=== PATIENT | female | born 1990 | race Hispanic/Latino ===

== ENCOUNTER 2017-02-28 22:52 | Outpatient (CLI) | payer BC, MEDICAID ==
[2017-02-28 23:14] VITALS: BP 118/65
== END 2017-02-28 23:36 | disposition home or self-care (01) ==
LOC: TRG 22:52
PROVIDERS: ATTEND Obstetrics & Gynecology
DX: O99.333 Smoking (tobacco) complicating pregnancy, third trimester (principal); O47.1 False labor at or after 37 completed weeks of gestation; Z3A.39 39 weeks gestation of pregnancy

== ENCOUNTER 2017-03-05 20:03 | Inpatient (IN) | payer BC, MEDICAID ==
[2017-03-05] MEDS ORDERED: BRETHINE IVP PRN (21:23)
[2017-03-05] MEDS ORDERED: ZOFRAN IV PRN (21:23)
[2017-03-05] MEDS ORDERED: MINERAL OIL PO PRN (21:23)
[2017-03-05] MEDS ORDERED: XYLOCAINE 2% INFILTRATI ONE (21:23)
[2017-03-05] MEDS ORDERED: BRETHINE SUB-Q PRN (21:23)
[2017-03-05] MEDS ORDERED: SUBLIMAZE IV PRN (21:23)
[2017-03-05] MEDS ORDERED: ePHEDrine SULFATE IV PRN (21:23)
[2017-03-05] MEDS ORDERED: PITOCin/NS 20 UNIT/1000ML DRIP 20 UNITS/1,000 ML BAG IV SCH (22:00)
[2017-03-05] MEDS ORDERED: PITOCin/NS 30 UNIT/500ML 30 UNITS/500 ML BAG IV SCH (22:00)
[2017-03-05 22:36] LABS: Hemoglobin 12.5 gm/dl (10.1-14.3); Mean Corpuscular HGB Conc 32 % (30-34); Mean Corpuscular Volume 79 fl (79-97); Platelet Count 251 K/mm3 (140-440); Red Blood Count 4.94 M/mm3 (3.65-5.03); Red Cell Distribution Width 14.5 % (13.2-15.2)
[2017-03-05 22:39] LABS: Mean Corpuscular Hemoglobin 25 pg (28-32)
[2017-03-05] MEDS: LACTATED RINGERS 1,000 ML IV SCH (23:10)
[2017-03-05] MEDS ORDERED: AMBIEN PO PRN (23:25)
[2017-03-06] MEDS: STADOL IV PRN ×2 (05:15→07:20)
[2017-03-06] MEDS: LACTATED RINGERS 1,000 ML IV SCH ×2 (07:23→07:45)
[2017-03-06] MEDS ORDERED: ePHEDrine SULFATE ONE (07:41)
--- NOTE | 2017-03-06 08:30 | Anesthesia Consultation ---
Anesthesia Consult and Med Hx Date of service: 03/06/17 - Airway Anesthetic Teeth Evaluation: Good ROM Head & Neck: Adequate Mental/Hyoid Distance: Adequate Mallampati Class: Class II Intubation Access Assessment: Probably Good - Pre-Operative Health Status ASA Pre-Surgery Classification: ASA3 Proposed Anesthetic Plan: Epidural, Spinal - Pulmonary Hx Smoking: Yes (1 p/d x 11 years) Hx Asthma: No COPD: No Hx Pneumonia: No - Cardiovascular System Hx Hypertension: No - Central Nervous System Hx Seizures: No Hx Psychiatric Problems: Yes (anxiety/depression) - Endocrine Hx Renal Disease: No Hx End Stage Renal Disease: No Hx Hypothyroidism: No Hx Hyperthyroidism: No - Hematic Hx Anemia: No Hx Sickle Cell Disease: No - Other Systems Hx Alcohol Use: No
[2017-03-06] MEDS ORDERED: ePHEDrine SULFATE IV PRN (09:00)
[2017-03-06] MEDS ORDERED: fentaNYL-BUPIV 2 MCG/ML-0.125% 200 MCG/100 ML BAG EPIDURAL SCH (09:00)
[2017-03-06] MEDS ORDERED: NARCAN 2 MG/2 ML IV PRN (09:00)
--- NOTE | 2017-03-06 12:13 | History and Physical Report ---
History of Present Illness Date of examination: 03/05/17 Date of admission: 03/05/17 20:03 Chief complaint: I'm overdue History of present illness: Patient is a 26 year old who presents for post dates induction of labor and macrosomia. The EFW was stated as greater than 4000 grams on 02/21/17. Patient has had an uncomplicated course. All labs have been normal. Past History Past Medical History: no pertinent history Past Surgical History: cholecystectomy Family/Genetic History: cancer (mom of ovarian cancer in 2014) Social history: single - Obstetrical History Expected Date of Delivery: 03/03/17 Actual Gestation: 40 Week(s) 3 Day(s) : 3 Para: 2 Number of Living Children: 1 Medications and Allergies Allergies Allergy/AdvReac Type Severity Reaction Status Date / Time No Known Allergies Allergy Verified 03/19/13 14:17 Home Medications Medication Instructions Recorded Confirmed Last Taken Type Vit-Fe Fumar-FA [ 1 each PO QDAY #60 tablet 05/10/15 03/05/17 03/04/17 Rx Vitamin] ALPRAZolam [Xanax TAB] 1 mg PO TID PRN 03/05/17 03/05/17 2 Weeks Ago History Active Meds: Active Medications Butorphanol Tartrate (Stadol) 2 mg IV Q2H PRN PRN Reason: Pain , Severe (7-10) Last Admin: 03/06/17 07:20 Dose: 2 mg Fentanyl (Sublimaze) 100 mcg IV Q2H PRN PRN Reason: Labor Pain Last Admin: 03/06/17 02:56 Dose: 100 mcg Lactated Ringer's (Lactated Ringers) 1,000 mls @ 125 mls/hr IV DIRECT ANGEL Last Admin: 03/06/17 07:45 Dose: 125 mls/hr Oxytocin/Sodium Chloride (Pitocin/Ns 20 Unit/1000ml Drip) 20 units in 1,000 mls @ 125 mls/hr IV DIRECT ANGEL Oxytocin/Sodium Chloride (Pitocin/Ns 30 Unit/500ml) 30 units in 500 mls @ 2 mls /hr IV TITR ANGEL; 2 MILLIUNITS/MIN PRN Reason: Protocol Last Admin: 03/05/17 23:15 Dose: 2 milliunits/min, 2 mls/hr Fentanyl/Bupivacaine/Sodium Chlor (Fentanyl-Bupiv 2 Mcg/Ml-0.125%) 200 mcg in 100 mls @ 12 mls/hr EPIDURAL TITR ANGEL PRN Reason: Protocol Last Admin: 03/06/17 09:13 Dose: 12 mls/hr Mineral Oil (Mineral Oil) 30 ml PO QHS PRN PRN Reason: Constipation Ondansetron HCl (Zofran) 4 mg IV Q8H PRN PRN Reason: Nausea And Vomiting Last Admin: 03/06/17 08:49 Dose: 4 mg Zolpidem Tartrate (Ambien) 5 mg PO QHS PRN PRN Reason: Sleep Last Admin: 03/05/17 23:32 Dose: 5 mg Review of Systems All systems: negative Constitutional: weight gain Genitourinary: contractions - Vital Signs Vital signs: Vital Signs Pulse BP 105 H 108/71 03/05/17 21:22 03/05/17 21:22 Temp Pulse Resp BP Pulse Ox 98.1 F 90 20 107/59 100 03/06/17 05:27 03/06/17 11:31 03/06/17 05:27 03/06/17 11:22 03/06/17 11:31 - Physical Exam Breasts: Cardiovascular: Regular rate, Normal S1, Normal S2 Lungs: Positive: Clear to auscultation, Normal air movement Abdomen: Positive: normal appearance, soft, normal bowel sounds. Negative: distention, tenderness Vulva: both: normal Vagina: Positive: normal moisture. Negative: discharge Cervix: Negative: lesion, discharge Uterus: Positive: normal size, normal contour Adnexa: both: normal Anus/Rectum: Positive: normal perianal skin, heme negative. Negative: rectal mass, hemorrhoids Extremities: Deep Tendon Reflex Grade: Normal +2 - Obstetrical Cervical Dilatation: 3 Cervical Effacement Percentage: 70 station: -2 Uterine Contraction Pattern: Absent Uterine Contraction Intensity: Mild Results Result Diagrams: 03/05/17 21:58 Abnormal lab results 03/05/17 Range/Units 21:58 WBC 14.0 H (4.5-11.0) K/mm3 MCH 25 L (28-32) pg All other labs normal. Assessment and Plan IUP at 40.2 weeks here for induction of labor. Admit for low dose pitocin therapy overnight. AROM when needed. Anticipate .
--- NOTE | 2017-03-06 12:18 | Procedure Note ---
OB Delivery Note - Delivery Date of Delivery: 03/06/17 Surgeon: LEXI SAHNI Estimated blood loss: other (150) - Vaginal Delivery presentation: vertex Delivery position: OA Intrapartum events: none Delivery induction: oxytocin Delivery monitor: external FHT, external uterine Route of delivery: Delivery placenta: spontaneous Delivery cord: 3 umbilical vessels Episiotomy: none Delivery laceration: vaginal side wall Anesthesia: epidural Delivery comments: Viable female delivered over intact perineum with 3vc. Weight 7 pounds 5 ounces. Apgars 8,9. placed on maternal abdomen. Placenta expelled spontaneously. Cord clamped and cut. Patient tolerated procedure well. - Infant A at 1 minute: 8 at 5 minutes: 9 Gender: Female
[2017-03-06] MEDS ORDERED: LANSINOH TP PRN (15:43)
[2017-03-06] MEDS ORDERED: PHENERGAN PO PRN (15:43)
[2017-03-06] MEDS ORDERED: DULCOLAX PR PRN (15:43)
[2017-03-06] MEDS ORDERED: PHENERGAN PR PRN (15:43)
[2017-03-06] MEDS ORDERED: MILK OF MAGNESIA PO PRN (15:43)
[2017-03-06] MEDS ORDERED: BENADRYL PO PRN (15:43)
[2017-03-06] MEDS ORDERED: ZOFRAN IV PRN (15:43)
[2017-03-06] MEDS ORDERED: SODIUM CHLORIDE FLUSH SYRINGE 10 ML IV NR (15:43)
[2017-03-06] MEDS ORDERED: TUCKS PAD TP PRN (15:43)
[2017-03-06] MEDS ORDERED: TYLENOL PO PRN (15:43)
[2017-03-06] MEDS ORDERED: DERMOPLAST TP PRN (17:34)
[2017-03-06] MEDS: MOTRIN PO SCH ×2 (17:45→22:00)
[2017-03-06] MEDS: NORCO 5/325 PO PRN (20:01)
[2017-03-07 00:59] LABS: Hematocrit 38.1 % (30.3-42.9)
[2017-03-07] MEDS: MOTRIN PO SCH ×2 (02:20→09:01)
[2017-03-07] MEDS: NORCO 5/325 PO PRN ×3 (04:29→13:12)
--- NOTE | 2017-03-07 11:25 | Progress Note ---
Assessment and Plan PPD 1 s/p . Doing well. Patient complaining of pain and pressure in pelvis. Bleeding normal. Will recommend abdominal binder to help with support for pelvic discomfort. Plan for discharge on today Subjective - Subjective Date of service: 03/07/17 Interval history: Patient is a 26 year old who presents for post dates induction of labor and macrosomia. The EFW was stated as greater than 4000 grams on 02/21/17. Patient has had an uncomplicated course. All labs have been normal. Patient reports: appetite normal, voiding normally, pain well controlled, ambulating normally, other (patient complaining of left sided hip and leg pain and vaginal pressure) : doing well Objective - Vital Signs Latest vital signs: Vital Signs Temp Pulse Resp BP Pulse Ox 03/07/17 00:40 98.2 F 84 20 103/62 03/06/17 20:30 97.7 F 89 20 98/53 03/06/17 17:45 20 03/06/17 16:34 98.7 F 88 20 98/70 03/06/17 13:50 97.9 F 72 20 100/70 03/06/17 13:40 97.9 F 80 16 110/62 100 03/06/17 12:22 73 135/58 03/06/17 12:07 90 134/58 03/06/17 12:03 87 100 03/06/17 12:01 94 H 122/86 03/06/17 11:31 90 100 03/06/17 11:26 84 99 Intake and Output 03/06/17 03/07/17 03/07/17 22:59 06:59 14:59 Intake Total 610 240 Output Total 900 Balance -290 240 Intake: IV 250 PITOCin/NS 20 UNIT/1000ML 250 DRIP 20 units In 1,000 ml @ 125 mls/hr IV DIRECT ANGEL Rx#:[id number] Oral 360 240 Output: Urine 900 Void 900 Other: Total, Intake Amount 360 240 Total, Output Amount 900 # Voids Void 1 - Exam Breasts: Present: deferred Cardiovascular: Present: Regular rate, Normal S1, Normal S2 Lungs: Present: Clear to auscultation, Normal air movement Abdomen: Present: normal appearance, soft, normal bowel sounds, other (obese, minimal tone) Vulva: both: normal Uterus: Present: normal, firm, fundal height below umbilicus Extremities: Present: normal Deep Tendon Reflex Grade: Normal +2
--- NOTE | 2017-03-07 11:27 | Discharge Summary ---
Providers - Providers Date of Admission: 03/05/17 20:03 Date of discharge: 03/07/17 Attending physician: LEXI SAHNI Primary care physician: LEXI SAHNI Hospitalization Reason for admission: induction of labor Delivery: Episiotomy: none Laceration: vaginal side wall complications: none Discharge diagnosis: IUP at term delivered [place] baby: female Hospital course: Unremarkable Condition at discharge: Good Disposition: DC-01 TO HOME OR SELFCARE Plan - Discharge Medications Prescriptions: HYDROcodone/APAP 5-325 [[place] 5/325] 1 each PO Q6HR PRN #20 tablet PRN Reason: Pain Ibuprofen [Motrin] 800 mg PO Q8HR PRN #30 tablet PRN Reason: Pain - Provider Discharge Summary Activity: routine, no sex for 6 weeks, no heavy lifting 4 weeks, no strenuous exercise Diet: routine Instructions: routine Additional instructions: [] Smoking cessation referral if applicable(refer to patient education folder for contact #) [] Refer to [facility]'s [facility] Booklet Call your doctor immediately for: * Fever > 100.5 * Heavy vaginal bleeding ( >1 pad per hour) * Severe persistent headache * Shortness of breath * Reddened, hot, painful area to leg or breast * Drainage or odor from incision. * Keep incision clean and dry at all times and follow doctor's instructions regarding bathing/showering - Follow up plan Follow up: LEXI SAHNI MD [Primary Care Provider] - 6 Weeks
[2017-03-07 15:22] VITALS: BP 142/76
--- NOTE | 2017-03-13 09:19 | Ultrasound Report ---
OB LIMITED INDICATION: well being, presentation. COMPARISON: None similar during this gestation. TECHNIQUE: Transabdominal grayscale ultrasound with Doppler interrogation. Gestation: [place] Position: Cephalic Heart Rate: 115 BPM
== END 2017-03-07 15:30 | disposition home or self-care (01) | DRG 775 ==
LOC: LD 20:03 → OB 03-06 14:08
PROVIDERS: ADMIT Obstetrics & Gynecology; ATTEND Obstetrics & Gynecology
PROC: 10E0XZZ Delivery of Products of Conception, External Approach (ICD-10-PCS; principal; 2017-03-06)
PROC: 3E033VJ Introduction of Other Hormone into Peripheral Vein, Percutaneous Approach (ICD-10-PCS; 2017-03-06)
PROC: 00HU33Z Insertion of Infusion Device into Spinal Canal, Percutaneous Approach (ICD-10-PCS; 2017-03-06)
PROC: 3E0R3CZ (ICD-10-PCS; 2017-03-06)
DX: O48.0 Post-term pregnancy (principal); O71.4 Obstetric high vaginal laceration alone; O36.63X0 Maternal care for excessive fetal growth, third trimester, not applicable or unspecified; Z3A.40 40 weeks gestation of pregnancy; Z37.0 Single live birth
CPT/HCPCS: 36415; 76815; 85014; 85018; 85027; 86850; 86900; 86901; J0595; J2405; J2590; J3010; J7120

== ENCOUNTER 2020-09-22 00:05 | Outpatient (CLI) | payer MEDICAID ==
[2020-09-22 01:33] VITALS: BP 132/80
== END 2020-09-22 01:29 | disposition home or self-care (01) ==
LOC: TRG 00:05 → APU 00:06 → TRG 01:29
PROVIDERS: ATTEND Obstetrics & Gynecology
DX: O47.03 False labor before 37 completed weeks of gestation, third trimester (principal); Z3A.37 37 weeks gestation of pregnancy
CPT/HCPCS: 59025

== ENCOUNTER 2021-07-22 17:53 | Emergency (ER) | payer MEDICAID ==
[2021-07-22] MEDS ORDERED: PROMETHAZINE 25 MG TAB PO ONE (20:15)
[2021-07-22] MEDS ORDERED: ACETAMINOPHEN 500 MG TAB PO ONE (20:15)
[2021-07-22] MEDS ORDERED: FAMOTIDINE 20 MG TAB PO ONE (20:15)
[2021-07-22 20:28] LABS: Basophils % (Auto) 0.7 % (0.0-1.8); Eosinophils # (Auto) 0.1 K/mm3 (0.0-0.4); Eosinophils % (Auto) 1.8 % (0.0-4.3); Hematocrit 47.5 % (30.3-42.9); Hemoglobin 15.2 gm/dl (10.1-14.3); Lymphocytes # (Auto) 2.6 K/mm3 (1.2-5.4); Lymphocytes % (Auto) 43.9 % (13.4-35.0); Mean Corpuscular HGB Conc 32 % (30-34); Mean Corpuscular Volume 81 fl (79-97); Monocytes # (Auto) 0.4 K/mm3 (0.0-0.8); Monocytes % (Auto) 6.7 % (0.0-7.3); Platelet Count 200 K/mm3 (140-440); Red Blood Count 5.88 M/mm3 (3.65-5.03); Red Cell Distribution Width 15.9 % (13.2-15.2)
[2021-07-22 20:45] LABS: Alanine Aminotransferase 30 units/L (7-56); Albumin 4.3 g/dL (3.9-5); Blood Urea Nitrogen 9 mg/dL (7-17); Calcium 9.4 mg/dL (8.4-10.2); Hemolysis Index 23
[2021-07-22 21:02] LABS: BUN/Creatinine Ratio 18
--- NOTE | 2021-07-22 21:52 | Ultrasound Report ---
ULTRASOUND OBSTETRIC INDICATION / CLINICAL INFORMATION: vaginal bleeding. TECHNIQUE: Transabdominal. COMPARISON: None available. FINDINGS: GESTATIONAL SAC: Not visualized YOLK SAC: Not visualized EMBRYO/FETUS: Not visualized ADNEXA: No significant abnormality. FREE FLUID: None. UTERUS: Uterus normal in size and echotexture measuring 9.3 x 4.5 x 5.5 cm. Endometrial stripe measur es 5 mm IMPRESSION: 1. No IUP. Follow-up beta-hCG and ultrasound recommended in order to distinguish early nonvisualized IUP, nonvisualized ectopic or less likely miscarriage. Signer Name: Otis Marquez MD Signed: 07/22/2021 9:48 PM Workstation Name: [id number]
[2021-07-22 23:43] LABS: Bilirubin,Urine NEG (Negative); Blood,Urine LG (Negative); Color,Urine Red (Yellow); Mucus,Urine FEW /HPF; Urobilinogen,Urine < 2.0 mg/dL (<2.0)
[2021-07-22 23:51] LABS: RBC,Urine > 182.0 /HPF (0.0-6.0)
[2021-07-23 00:27] VITALS: BP 150/98
--- NOTE | 2021-07-23 00:27 | Emergency Department Report ---
ED Female HPI - General Chief complaint: Vaginal Bleeding Stated complaint: poss miscarriage Source: patient Mode of arrival: Ambulatory Limitations: No Limitations - History of Present Illness Initial comments: Patient is a A0 30-year-old female with no past medical history who presented to the ED with complaint of acute onset persistent severe pelvic pain with vaginal bleeding for the last 12 hours. Patient states that she tested positive for at home about a week ago and has been having persistent pelvic pain intermittently but that the bleeding started about 12 hours ago. Patient states that she has had heavy bleeding persistently for the last 12 hours and scared that she may be having a miscarriage. Patient denies fever, chills, dysuria, urinary frequency and urgency, chest pain or shortness of breath, lightheadedness, low back pain, cough, sore throat or change in vision. MD Complaint: vaginal bleeding, pelvic pain, other (Headache) -: Sudden, hour(s) (12) Location: suprapubic, other (vaginal) Radiation: suprapubic Severity: severe Severity scale (0 -10): 7 Quality: cramping, sharp Consistency: constant Improves with: none Worsens with: movement Are you Now?: Yes (4 weeks gestation) Associated Symptoms: denies other symptoms, vaginal bleeding, abdominal pain (suprapubic pain). denies: vaginal discharge, nausea/vomiting, fever/chills, headaches, loss of appetite, dysuria, hematuria, rash, shortness of breath, syncope, weakness - Related Data Sexually active: Yes : 5 Para: 4 A: 0 Home Medications Medication Instructions Recorded Confirmed Last Taken ALPRAZolam [Xanax TAB] 1 mg PO TID PRN 03/05/17 03/05/17 2 Weeks Ago ~02/19/17 Previous Rx's Medication Instructions Recorded Last Taken Type Vit-Fe Fumar-FA [ 1 each PO QDAY #60 tablet 05/10/15 03/04/17 Rx Vitamin] HYDROcodone/APAP 5-325 [[place] 1 each PO Q6HR PRN #20 tablet 03/06/17 Unknown Rx 5/325] Ibuprofen [Motrin] 800 mg PO Q8HR PRN #30 tablet 03/06/17 Unknown Rx HYDROcodone/APAP 5-325 [[place] 1 each PO Q6HR PRN #15 tablet 10/04/20 Unknown Rx 5/325] Ibuprofen [Motrin] 800 mg PO Q8HR PRN #40 tablet 10/04/20 Unknown Rx Acetaminophen [Tylenol] 500 mg PO Q6HR #30 tablet 07/23/21 Unknown Rx Promethazine [Phenergan] 25 mg PO Q8HR PRN #20 tab 07/23/21 Unknown Rx cephALEXin [Keflex] 500 mg PO Q8HR #30 cap 07/23/21 Unknown Rx Allergies Allergy/AdvReac Type Severity Reaction Status Date / Time No Known Allergies Allergy Verified 03/19/13 14:17 ED Review of Systems ROS: Stated complaint: poss miscarriage Other details as noted in HPI Constitutional: denies: chills, fever Eyes: denies: eye pain, eye discharge, vision change ENT: denies: ear pain, throat pain Respiratory: denies: cough, shortness of breath, wheezing Cardiovascular: denies: chest pain, palpitations Endocrine: no symptoms reported Gastrointestinal: abdominal pain (suprapubic). denies: nausea, vomiting, diarrhea Genitourinary: abnormal menses (vaginal bleeding). denies: urgency, dysuria, discharge Musculoskeletal: back pain. denies: joint swelling, arthralgia Skin: denies: rash, lesions Neurological: headache. denies: weakness, paresthesias Psychiatric: anxiety. denies: depression Hematological/Lymphatic: denies: easy bleeding, easy bruising ED Past Medical Hx - Past Medical History Hx Hypertension: No Hx Heart Attack/AMI: No Hx Congestive Heart Failure: No Hx Diabetes: No Hx Deep Vein Thrombosis: No Hx Liver Disease: No Hx Renal Disease: No Hx Sickle Cell Disease: No Hx Seizures: No Hx Asthma: No Hx COPD: No Hx HIV: No - Surgical History Hx Pacemaker: No Hx Internal Defibrillator: No - Social History Smoking Status: Never Smoker - Medications Home Medications: Home Medications Medication Instructions Recorded Confirmed Last Taken Type Vit-Fe Fumar-FA [ 1 each PO QDAY #60 tablet 05/10/15 03/05/17 03/04/17 Rx Vitamin] ALPRAZolam [Xanax TAB] 1 mg PO TID PRN 03/05/17 03/05/17 2 Weeks Ago History ~02/19/17 HYDROcodone/APAP 5-325 [[place] 1 each PO Q6HR PRN #20 tablet 03/06/17 Unknown Rx 5/325] Ibuprofen [Motrin] 800 mg PO Q8HR PRN #30 tablet 03/06/17 Unknown Rx HYDROcodone/APAP 5-325 [[place] 1 each PO Q6HR PRN #15 tablet 10/04/20 Unknown Rx 5/325] Ibuprofen [Motrin] 800 mg PO Q8HR PRN #40 tablet 10/04/20 Unknown Rx Acetaminophen [Tylenol] 500 mg PO Q6HR #30 tablet 07/23/21 Unknown Rx Promethazine [Phenergan] 25 mg PO Q8HR PRN #20 tab 07/23/21 Unknown Rx cephALEXin [Keflex] 500 mg PO Q8HR #30 cap 07/23/21 Unknown Rx ED Physical Exam - General Limitations: No Limitations General appearance: alert, in no apparent distress - Head Head exam: Present: atraumatic, normocephalic, normal inspection - Eye Eye exam: Present: normal appearance, PERRL, EOMI Pupils: Present: normal accommodation - ENT ENT exam: Present: normal exam, normal orophraynx, mucous membranes moist, TM's normal bilaterally, normal external ear exam - Neck Neck exam: Present: normal inspection, full ROM. Absent: tenderness, meni ngismus - Respiratory Respiratory exam: Present: normal lung sounds bilaterally. Absent: respiratory distress, wheezes, rales, rhonchi, chest wall tenderness, accessory muscle use, decreased breath sounds, other - Cardiovascular Cardiovascular Exam: Present: regular rate, normal rhythm, normal heart sounds. Absent: systolic murmur, diastolic murmur, rubs, gallop - GI/Abdominal GI/Abdominal exam: Present: soft, tenderness (Palpable mild suprapubic tenderness), normal bowel sounds. Absent: guarding, rebound, hyperactive bowel sounds, hypoactive bowel sounds, organomegaly - Bi-manual exam: Present: other (Pelvic exam deferred at this time) - Extremities Exam Extremities exam: Present: normal inspection, full ROM, normal capillary refill - Back Exam Back exam: Present: normal inspection, full ROM. Absent: tenderness, CVA tenderness (R), CVA tenderness (L), muscle spasm, paraspinal tenderness, vertebral tenderness - Neurological Exam Neurological exam: Present: alert, oriented X3, CN II-XII intact, normal gait, reflexes normal - Psychiatric Psychiatric exam: Present: normal affect, normal mood - Skin Skin exam: Present: warm, dry, intact, normal color. Absent: rash ED Medical Decision Making - Lab Data Result diagrams: 07/22/21 20:04 07/22/21 20:04 - Radiology Data Radiology results: report reviewed, image reviewed [facility] [address] [place] [address] Ultrasound Report Signed Patient: VANNESSA CARO MR#: [id number] : 1990 Acct:[id number] Age/Sex: 30 / F ADM Date: 07/22/21 Loc: ED Attending Dr: Ordering Physician: AZEB GUTIERREZ Date of Service: 07/22/21 Procedure(s): US OB <= 14 weeks fetus Accession Number(s): [id number] cc: AZEB GUTIERREZ ULTRASOUND OBSTETRIC INDICATION / CLINICAL INFORMATION: vaginal bleeding. TECHNIQUE: Transabdominal. COMPARISON: None available. FINDINGS: GESTATIONAL SAC: Not visualized YOLK SAC: Not visualized EMBRYO/FETUS: Not visualized ADNEXA: No significant abnormality. FREE FLUID: None. UTERUS: Uterus normal in size and echotexture measuring 9.3 x 4.5 x 5.5 cm. Endometrial stripe measures 5 mm IMPRESSION: 1. No IUP. Follow-up beta-hCG and ultrasound recommended in order to distinguish early nonvisualized IUP, nonvisualized ectopic or less likely miscarriage. Signer Name: Otis Marquez MD Signed: 07/22/2021 9:48 PM Workstation Name: [id number] Transcribed By: TL Dictated By: Otis Marquez MD Electronically Authenticated By: Otis Marquez MD Signed Date/Time: 07/22/212147 DD/ 45 TD/TT: Print Cancel - Medical Decision Making This is a A0 30-year-old female with no past medical history who presented to the ED with complaint of acute onset persistent severe pelvic pain with vaginal bleeding for the last 12 hours. Patient states that she tested positive for at home about a week ago and has been having persistent pelvic pain intermittently but that the bleeding started about 12 hours ago. Patient states that she has had heavy bleeding persistently for the last 12 hours and scared that she may be having a miscarriage. In the ED, patient is alert and oriented x3 and is not in distress. Patient also complains of headache in the ED. Patient was treated for pain in the ED and also given antiemetics. L ab test results were reviewed and are all nonactionable except for hCG quant of 16.12 and urinalysis showed mild urinary tract infection. Transvaginal ultrasound showed no IUP. Follow-up beta-hCG and ultrasound recommended in order to distinguish early nonvisualized IUP, nonvisualized ectopic or less likely miscarriage. On reevaluation, patient pain is well controlled medication. Patient will discharge home and advised to return to the ED or to her [facility] physician within 48 hours for serial hCG tests to ascertain the viability of the . Patient was advised return to the ED immediately if symptoms get worse. - Differential Diagnosis threatened miscarriage; ectopic preg; UTI; Ovarian cyst; subchorionic bleed Critical care attestation.: If time is entered above; I have spent that time in minutes in the direct care of this critically ill patient, excluding procedure time. ED Disposition Clinical Impression: Threatened miscarriage in early , Vaginal bleeding in patient after first trimester, Abdominal pain during in first trimester, Acute urinary tract infection Tension type headache, unspecified Qualifiers: Headache chronicity pattern: acute headache Intractability: not intractable Qualified Code(s): G44.209 - Tension-type headache, unspecified, not intractable Disposition: 01 HOME / SELF CARE / HOMELESS Is pt being admited?: No Does the pt Need Aspirin: No Condition: Stable Instructions: Threatened Miscarriage, [id number], Abdominal Pain, Adult, [id number], Urinary Tract Infection, Adult, [id number], Tension Headache, Adult, [id number]-[id number], General Headache Without Cause, [id number]-[id number], Vaginal Bleeding During , First Trimester, Noks-xw-Yazp Additional Instructions: All lab test results were reviewed and are all nonactionable except for hCG quant of 16.12 and transvaginal ultrasound showed no intrauterine at this time possibly due to miscarriage, too early, or ectopic . Therefore take medications as needed for pain, follow-up with your [facility] or return to the ED within 48 hours for serial hCG quant recheck to ascertain the viability of the . Otherwise return to the ED immediately if symptoms get worse. Prescriptions: Acetaminophen [Tylenol] 500 mg PO Q6HR #30 tablet cephALEXin [Keflex] 500 mg PO Q8HR #30 cap Promethazine [Phenergan] 25 mg PO Q8HR PRN #20 tab PRN Reason: Nausea Referrals: DESTINEY BASS MD [Staff Physician] - 3-5 Days Time of Disposition: 00:39 Print Language: PORTUGUESE
== END 2021-07-23 01:50 | disposition home or self-care (01) ==
LOC: ED 17:53
DX: O20.0 Threatened abortion (principal); O26.891 Other specified pregnancy related conditions, first trimester; G44.209 Tension-type headache, unspecified, not intractable; O23.41 Unspecified infection of urinary tract in pregnancy, first trimester; N39.0 Urinary tract infection, site not specified; Z79.899 Other long term (current) drug therapy; Z3A.01 Less than 8 weeks gestation of pregnancy
CPT/HCPCS: 36415; 76801; 80053; 81001; 84702; 85025; 87086; 99284; Q0169